=== PATIENT | female | born 1980 ===

== ENCOUNTER 2020-03-22 12:01 | Outpatient (REF) | payer OTHER, SELFPAY | END 2020-03-22 12:02 | disposition home or self-care (01) | LOC: HO.LAB 12:01 | PROVIDERS: Visit Provider Internal Medicine | DX: Z20.828 Contact with and (suspected) exposure to other viral communicable diseases (principal) | CPT/HCPCS: C9803; U0003 ==

== ENCOUNTER 2022-12-22 09:20 | Outpatient (AMB) | payer OTHER, SELFPAY ==
--- NOTE | 2022-12-22 09:22 | A.OFFVIS_ITS ---
Intake Vital Signs 12/22/22 09:29 Height 5 ft Weight 171 lb 4 oz BMI 33.4 BP 163/94 H Blood Pressure Location Lt brachial Position Sitting Pulse 78 Pulse Source Pulse Oximeter Pulse Oximetry (%) 98 Oxygen Delivery Method Room Air Intake Visit Reasons: Bilateral Foot Pain Allergies dulaglutide [From [employer]] Allergy (Unknown, Verified 12/22/22 09:26) Itching Latex Gloves Allergy (Unknown, Uncoded 12/22/22 09:26) Unknown HPI Bilateral Foot Pain HPI Details Patient is a pleasant 42 years old with history of uncontrolled diabetes, diabetic polyneuropathy, presents today for initial evaluation of bilateral foot pain. Denies any past or recent trauma, injury or falls. Reports most recent A1C was 9.4, managed with Metformin and Lantus Insulin 28 units daily at bedtime. She follows with [facility]. Patient reports severe neuropathy per EMG studies in 2021, these reports are not available today. Reports history of gestational DM at age 19, diagnosed with DM more than 20 years ago and has not controlled it for a long time per patient. The pain intensity rates at 8-10/10 in intensity. It interferes with her daily activities and functions, and sleeping as well. Pain is described as constant aching, spasming, stabbing, tingling, shooting, tiring, exhausting, shock-like, squeezing, nagging, sharp, numbness, burning, sensations in her lower extremities and feet which is most worst at night or walking during the day. Patient is interested in topical capsaicin application for bilateral foot pain as she has failed extensive conservative treatments through Podiatry and PT services as noted below. Patient reports mild axial low back pain without any radicular symptoms today. She reports neuropathy pain from knees down to her feet, left worse than right. Denies any fever, weakness, bladder or bowel inc ontinence or saddle anesthesia. Location Bilateral foot pain radiates to left knee, mid to low back pain Duration Chronic foot pain for >5 years, progressively worsening Characteristics of symptom or complaint Burning, aching, sharp, numbness, tingling, nagging, tiring, shooting Aggravating or associated factors Walking, sleeping Relieving factors Tried gabapentin, Feldene, now on pregabalin, topical compound creams Treatment Physical therapy at [facility], massage, customized orthopedic shoes, AFO splint [facility] Medical History (Updated 12/24/22 @ 21:53 by STEPHANIE Baker) Neuralgia and neuritis, unspecified Plantar fascial fibromatosis Hammer toe of left foot Hammer toe of right foot Carotid artery stenosis Numbness Vertigo Headache Migraine Diabetes Depression Back pain Anxiety Social History (Updated 12/22/22 @ 09:26 by Mary Blackman) Alcohol intake: former Patient Tobacco Use Status: Never used Tobacco Substance Use Type: Caffiene Substance Use Type Other:: 1-3 cups Substance Use Frequency: Daily Review of Systems Const All systems reviewed & are unremarkable except as noted in HPI and below Physical Exam Vital Signs: Last Vital Signs Pulse 78 12/22/22 09:29 BP 163/94 H 12/22/22 09:29 Pulse Ox 98 12/22/22 09:29 Oxygen Delivery Method Room Air 12/22/22 09:29 BMI result Body Mass Index 33.4 General: Appears afebrile. Alert and oriented. Mood and affect appropriate. Follows and participates in conversation appropriately. Respiratory effort is unlabored. No cough. Able to transition from sit to stand unassisted. Ambulates with bilaterally normal heel strike and toe off. Back/Spine/Pelvis Cervical Spine: cervical ROM normal, cervical muscular tenderness, No Cervical spine tenderness and No step off deformity Thoracic/Lumbar Spine: thoracic and lumbar spine normal to inspection, No Thoracic/lumbar spine scar(s), Lasegue's sign negative, straight leg raise negative bilaterally, pain with thoraco-lumbar ROM, thoracic spinal tenderness at T12 and lumbar spinal tenderness at L1 and at L5 Pelvis: no buttock tenderness Sacroiliac joints: bilaterally nontender Neuro Other: Bilateral feet: reduced light touch sensation, reduced sharp/dull discrimination consistent with stocking glove neuropathy. Patient reports burning, tingling, shooting and radiating pain to her knees, especially at evening and night, hyperesthesia bilaterally. General: moves all extremities, no focal motor deficits and decrease sensation to monofilament Gait exam (Neuro): Antalgic gait present and No Assistive device used Motor exam (neuro): 5/5 motor strength present throughout, no tremor noted and Motor abnormalities not present Extrem Other: There is a decreased sensation over the soles of the feet and toes. No breaks in the skin. No soft tissue swelling or warmth. +2 pedal pulses bilaterally. Normal skin color and texture. Good turgor and elasticity. General: Yes capillary refill normal, Yes no clubbing, cyanosis or edema and Yes no calf tenderness Results Reviewed Results Reviewed: No imaging results are available for review today. Assessment & Plan Assessment & Plan (1) Chronic painful diabetic neuropathy: Code(s): E11.40 - Type 2 diabetes mellitus with diabetic neuropathy, unspecified (2) Low back pain: Code(s): M54.50 - Low back pain, unspecified Plan Discussed risks and benefits of different treatment options including topical 8% capsaicin application and spinal cord stimulation. Medical release requests sent to [facility] for previous foot and back xrays, and EMG studies. Will try to arrange topical 8% capsaicin application for bilateral foot pain as the next step once we have confirmed availability. Informational booklet provided to patient. All questions and concerns have been answered and the patient agreed with the plan. Follow up as needed. Coding Level of Care Code New Pt Level 4 (75642) Diagnoses Chronic painful diabetic neuropathy E11.40 Low back pain M54.50
[2022-12-22 09:29] VITALS: BP 163/94; PULSE 78; O2SAT 98; BMI 33.4
== END 2022-12-22 09:56 | disposition home or self-care (01) ==
PROVIDERS: PCP Internal Medicine Geriatric Medicine; Visit Provider Nurse Practitioner Family
DX: E11.40 Type 2 diabetes mellitus with diabetic neuropathy, unspecified (principal); M54.50 Low back pain, unspecified
CPT/HCPCS: 99204

== ENCOUNTER → 2022-12-22 09:20 | Outpatient (BNVA) | payer OTHER, SELFPAY | PROVIDERS: PCP Internal Medicine Geriatric Medicine; Visit Provider Nurse Practitioner Family ==

== ENCOUNTER 2023-01-04 12:56 | Outpatient (AMB) | payer OTHER, SELFPAY ==
--- NOTE | 2023-01-04 13:00 | MHC.OFFVIS ---
Intake Vital Signs 01/04/23 13:05 01/04/23 13:32 01/04/23 14:11 Height 5 ft Weight 171 lb BMI 33.4 BP 130/84 120/73 118/71 Blood Pressure Location Rt brachial Lt brachial Lt brachial Position Sitting Sitting Sitting Pulse 103 H 100 101 H Pulse Source Pulse Oximeter Pulse Oximeter Pulse Oximeter Pulse Oximetry (%) 99 97 98 Oxygen Delivery Method Room Air Room Air Room Air Comment 15 mins after qutenza application 30 mins after qutenza application Intake Visit Reasons: Qutenza - DN/ LVM. Intake Note: Nicole comes i today for qutenza application to bilateral feet. Lot #[id number] Exp [facility] [id number] Pain today 09/09 Legal Executive Assistant Required: No Accompanied by: Self / Same As Patient Allergies dulaglutide [From [facility]] Allergy (Unknown, Verified 01/04/23 13:05) Itching Latex Gloves Allergy (Unknown, Uncoded 12/22/22 09:26) Unknown HPI HPI Comments History of Present Illness Details Patient presents for application of capsaicin 8% topical patch for diabetic neuropathy in bilateral feet. Denies any recent cough, cold, infection, fever or other significant changes in medical history since last office visit. PRIOR: Patient is a pleasant 42 years old with history of uncontrolled diabetes, diabetic polyneuropathy, presents today for initial evaluation of bilateral foot pain. Denies any past or recent trauma, injury or falls. Reports most recent A1C was 9.4, managed with Metformin and Lantus Insulin 28 units daily at bedtime. She follows with [facility]. Patient reports severe neuropathy per EMG studies in 2021, these reports are not available today. Reports history of gestational DM at age 19, diagnosed with DM more than 20 years ago and has not controlled it for a long time per patient. The pain intensity rates at 8-10/10 in intensity. It interferes with her daily activities and functions, and sleeping as well. Pain is described as constant aching, spasming, stabbing, tingling, shooting, tiring, exhausting, shock-like, squeezing, nagging, sharp, numbness, burning, sensations in her lower extremities and feet which is most worst at night or walking during the day. Patient is interested in topical capsaicin application for bilateral foot pain as she has failed extensive conservative treatments through Podiatry and PT services as noted below. Patient reports mild axial low back pain without any radicular symptoms today. She reports neuropathy pain from knees down to her feet, left worse than right. Denies any fever, weakness, bladder or bowel incontinence or saddle anesthesia. Location Bilateral foot pain radiates to left knee, mid to low back pain Duration Chronic foot pain for >5 years, progressively worsening Characteristics of symptom or complaint Burning, aching, sharp, numbness, tingling, nagging, tiring, shooting Aggravating or associated factors Walking, sleeping Relieving factors Tried gabapentin, Feldene, now on pregabalin, topical compound creams Treatment Physical therapy at [facility], massage, customized orthopedic shoes, AFO splint [facility] Medical History Neuralgia and neuritis, unspecified Plantar fascial fibromatosis Hammer toe of left foot Hammer toe of right foot Carotid artery stenosis Numbness Vertigo Headache Migraine Diabetes Depression Back pain Anxiety Social History Alcohol intake: former Patient Tobacco Use Status: Never used Tobacco Substance Use Type: Caffiene Review of Systems Const All systems reviewed & are unremarkable except as noted in HPI and below Physical Exam Vital Signs: Last Vital Signs Pulse 100 01/04/23 13:32 BP 120/73 01/04/23 13:32 Pulse Ox 97 01/04/23 13:32 Oxygen Delivery Method Room Air 01/04/23 13:32 BMI result Body Mass Index 33.4 General: Appears afebrile. Alert and oriented. Mood and affect appropriate. Follows and participates in conversation appropriately. Respiratory effort is unlabored. No cough. Able to transition from sit to stand unassisted. Ambulates with bilaterally normal heel strike and toe off. Neuro Other: Bilateral feet: reduced light touch sensation, reduced sharp/dull discrimination consistent with stocking glove neuropathy. Patient reports burning, tingling, shooting and radiating pain to her knees, especially at evening and night, hyperesthesia bilaterally. Extrem Other: There is a decreased sensation over the soles of the feet and toes. No breaks in the skin. No skin discoloration. Normal skin texture. No soft tissue swelling or warmth. +2 pedal pulses bilaterally. General: Yes capillary refill normal, Yes no clubbing, cyanosis or edema and Yes no calf tenderness Office Procedures Topical Capsaicin Date 1:: 01/04/23 Laterality: Bilateral Location of left foot pain: Plantar and Dorsal Location of right foot pain: Plantar and Dorsal Quality of pain: Aching, Stabbing, Burning, Numb-like, Tiring, Penetrating, Sharp and Unbearable (at times) Details:: Two patches, 560 cm2 were utilized per each foot. EMLA Cream (lidocaine 2.5% and prilocaine 2.5%) was applied by patient at home prior to arriving for application of the patch. The patient tolerated the procedure well. Her vitals signs remained stable throughout the procedure. Patient was able to complete the stipulated 30 minutes of the therapeutic application without any discomfort. Office Meds capsaicin-skin cleanser 8 % topical kit Performing Provider: STEPHANIE Baker Performing Location: [facility] Administered by: STEPHANIE Baker on 01/04/23 13:15 Dose Route Admin Location Dispensed Lot Number Expiration Date [facility] Customer Sales Representative 4 ea topical [facility] 4 ea [id number] 04/02/25 [id number] [employer] Assessment & Plan Assessment & Plan (1) Chronic painful diabetic neuropathy: Code(s): E11.40 - Type 2 diabetes mellitus with diabetic neuropathy, unspecified Plan Patient is status post 1st round of application of topical capsaicin 8% for diabetic neuropathy in bilateral feet. Patient tolerated the procedure without significant discomfort with application of EMLA cream prior to the procedure. She was discharged home in stable condition with discharge instructions. All questions and concerns were answered and the patient agreed with the plan. Next Qutenza scheduled in 3 months. Follow up as needed. Greater than 45 minutes were spent in therapeutic application and in coordination of the care. Orders: Orders AMB Capsaicin Patch - Practice Supplied Today E11.40 - Type 2 diabetes mellitus with diabetic neuropathy, unspecified Coding Level of Care Code Est Pt Level 5 (82631) Diagnoses Chronic painful diabetic neuropathy E11.40
[2023-01-04 13:05] VITALS: BP 130/84; PULSE 103; O2SAT 99; BMI 33.4
[2023-01-04 13:32] VITALS: BP 120/73; PULSE 100; O2SAT 97
[2023-01-04 14:11] VITALS: BP 118/71; PULSE 101; O2SAT 98
== END 2023-01-04 13:53 | disposition home or self-care (01) ==
PROVIDERS: PCP Internal Medicine Geriatric Medicine; Visit Provider Nurse Practitioner Family
DX: E11.40 Type 2 diabetes mellitus with diabetic neuropathy, unspecified (principal)
CPT/HCPCS: 17999; 99215

== ENCOUNTER → 2023-01-04 12:56 | Outpatient (BNVA) | payer OTHER, SELFPAY | PROVIDERS: PCP Internal Medicine Geriatric Medicine; Visit Provider Nurse Practitioner Family | DX: E11.40 Type 2 diabetes mellitus with diabetic neuropathy, unspecified (principal) | CPT/HCPCS: 17999; J7336 ==

== ENCOUNTER 2023-01-29 13:59 | Outpatient (REF) | payer OTHER, SELFPAY | END 2023-01-29 14:00 | disposition home or self-care (01) | LOC: HO.SH 13:59 | PROVIDERS: Visit Provider Internal Medicine | DX: Z01.118 Encounter for examination of ears and hearing with other abnormal findings (principal); H90.6 Mixed conductive and sensorineural hearing loss, bilateral; H69.93 Unspecified Eustachian tube disorder, bilateral | CPT/HCPCS: 92557; 92567 ==

== ENCOUNTER 2023-04-06 12:51 | Outpatient (AMB) | payer OTHER, SELFPAY ==
--- NOTE | 2023-04-06 12:54 | MHC.OFFVIS ---
Intake Vital Signs 04/06/23 12:57 04/06/23 13:30 04/06/23 13:44 Height 5 ft Weight 170 lb BMI 33.2 BP 109/75 120/73 114/71 Blood Pressure Location Rt brachial Rt brachial Rt brachial Position Sitting Sitting Sitting Pulse 119 H 112 H 114 H Pulse Source Pulse Oximeter Pulse Oximeter Pulse Oximeter Pulse Oximetry (%) 100 99 98 Oxygen Delivery Method Room Air Room Air Room Air Comment 15 mins after qutenza application 30 mins after qutenza application Intake Visit Reasons: QUTENZA/DN Intake Note: Pain today 10/09 Television Analyzer Required: No Accompanied by: Self / Same As Patient Allergies [facility]ul[facility]ide [[facility]] Allergy (Unknown, Verified 04/06/23 12:58) Itching Latex Gloves Allergy (Unknown, Uncoded 12/22/22 09:26) Unknown HPI HPI Comments History of Present Illness Details Patient presents for 2nd application of capsaicin 8% topical patch for diabetic neuropathy in bilateral feet. Patient continues to endorse bilateral foot numbness, burning, sharp, and nagging sensantions worse at night and walking. She noted no significant symptoms improvement after first application on 01/04/23. Pain interferes with her mobility, daily functioning and sleep. Denies any recent cough, cold, infection, fever or other significant changes in medical history since last office visit. PRIOR: Patient is a pleasant 42 years old with history of uncontrolled diabetes, diabetic polyneuropathy, presents today for initial evaluation of bilateral foot pain. Denies any past or recent trauma, injury or falls. Reports most recent A1C was 9.4, managed with Metformin and Lantus Insulin 28 units daily at bedtime. She follows with [facility]. Patient reports severe neuropathy per EMG studies in 2021, these reports are not available today. Reports history of gestational DM at age 19, diagnosed with DM more than 20 years ago and has not controlled it for a long time per patient. The pain intensity rates at 8-10/10 in intensity. It interferes with her daily activities and functions, and sleeping as well. Pain is described as constant aching, spasming, stabbing, tingling, shooting, tiring, exhausting, shock-like, squeezing, nagging, sharp, numbness, burning, sensations in her lower extremities and feet which is most worst at night or walking during the day. Patient is interested in topical capsaicin application for bilateral foot pain as she has failed extensive conservative treatments through Podiatry and PT services as noted below. Patient reports mild axial low back pain without any radicular symptoms today. She reports neuropathy pain from knees down to her feet, left worse than right. Denies any fever, weakness, bladder or bowel incontinence or saddle anesthesia. Location Bilateral foot pain radiates to left knee, mid to low back pain Duration Chronic foot pain for >5 years, progressively worsening Characteristics of symptom or complaint Burning, aching, sharp, numbness, tingling, nagging, tiring, shooting Aggravating or associated factors Walking, sleeping Relieving factors Tried gabapentin, Feldene, now on pregabalin, topical compound creams Treatment Physical therapy at [facility], massage, customized orthopedic shoes, AFO splint PENDING SALE TO [facility] Medical History Neuralgia and neuritis, unspecified Plantar fascial fibromatosis Hammer toe of left foot Hammer toe of right foot Carotid artery stenosis Numbness Vertigo Headache Migraine Diabetes Depression Back pain Anxiety Social History Alcohol intake: former Patient Tobacco Use Status: Never used Tobacco Substance Use Type: Caffiene Review of Systems Const All systems reviewed & are unremarkable except as noted in HPI and below Physical Exam Vital Signs: Last Vital Signs Pulse 112 H 04/06/23 13:30 BP 120/73 04/06/23 13:30 Pulse Ox 99 04/06/23 13:30 Oxygen Delivery Method Room Air 04/06/23 13:30 BMI result Body Mass Index 33.2 General: Appears afebrile. Alert and oriented. Mood and affect appropriate. Follows and participates in conversation appropriately. Respiratory effort is unlabored. No cough. Able to transition from sit to stand unassisted. Ambulates with bilaterally normal heel strike and toe off. Back/Spine/Pelvis Cervical Spine: cervical ROM normal and No Cervical spine tenderness Thoracic/Lumbar Spine: thoracic and lumbar spine normal to inspection, No Thoracic/lumbar spine scar(s), Lasegue's sign negative, straight leg raise negative bilaterally, pain with thoraco-lumbar ROM, No thoracic spinal tenderness and lumbar spinal tenderness at L4 and at L5 Pelvis: no buttock tenderness Skin General skin exam: no rashes or lesions noted Nails: yellow and thickened (toenails) Neuro Other: Bilateral feet: reduced light touch sensation, reduced sharp/dull discrimination consistent with stocking glove neuropathy. Patient reports burning, tingling, shooting and radiating pain to her knees, especially at evening and night, hyperesthesia bilaterally. Extrem Other: There is a decreased sensation over the soles of the feet and toes. No breaks in the skin. No skin discoloration. Normal skin texture. No soft tissue swelling or warmth. +2 pedal pulses bilaterally. Normal capillary refill. No clubbing, cyanosis or edema. No calf tenderness. Office Procedures Topical Capsaicin Date 1:: 01/04/23 Date 2:: 04/06/23 Main area of pain on the body: Bilateral feet and toes Laterality: Bilateral Location of left foot pain: Anterior, Posterior, Plantar and Dorsal Location of right foot pain: Anterior, Posterior, Plantar and Dorsal Quality of pain: Aching, Stabbing, Nagging, Burning, Gnawing and Numb-like Details:: Two patches, 560 cm2 were utilized per each foot. EMLA Cream (lidocaine 2.5% and prilocaine 2.5%) was applied at home by patient prior to application of the patches. The patient tolerated the procedure well. Patient?s vitals signs remained stable throughout the procedure. Patient was able to complete the stipulated 30 minutes of the therapeutic application without any discomfort. Office Meds capsaicin-skin cleanser 8 % topical kit Performing Provider: STEPHANIE Baker Performing Location: [facility] Administered by: STEPHANIE Baker on 04/06/23 13:10 Dose Route Admin Location Dispensed Lot Number Expiration Date [facility] Sprinkler Driver [address] [facility] 4 ea [id number] 08/31/25 [id number] [employer] Assessment & Plan Assessment & Plan (1) Chronic painful diabetic neuropathy: Code(s): E11.40 - Type 2 diabetes mellitus with diabetic neuropathy, unspecified (2) Low back pain: Code(s): M54.50 - Low back pain, unspecified Plan Patient is status post 2nd round of application of topical capsaicin 8% for diabetic neuropathy in bilateral feet. Patient tolerated the procedure without significant discomfort with application of EMLA cream prior to the procedure. She was discharged home in stable condition with discharge instructions. Script sent for amitriptyline at bedtime, side effects and precautions were reviewed with patient. Continue pregabalin. All questions and concerns were answered and the patient agreed with the plan. Next Qutenza scheduled in 3 months. Follow up for medication review and sooner as needed. Greater than 40 minutes were spent in therapeutic application and in coordination of the care. Orders: Orders AMB Capsaicin Patch - Practice Supplied Today E11.40 - Type 2 diabetes mellitus with diabetic neuropathy, unspecified Medications: New amitriptyline 10 mg PO BEDTIME 30 days 30 tabs 0RF pain E11.40 - Type 2 diabetes mellitus with diabetic neuropathy, unspecified Coding Level of Care Code Est Pt Level 4 (64407) Diagnoses Chronic painful diabetic neuropathy E11.40 Low back pain M54.50
[2023-04-06 12:57] VITALS: BP 109/75; PULSE 119; O2SAT 100; BMI 33.2
[2023-04-06 13:30] VITALS: BP 120/73; PULSE 112; O2SAT 99
[2023-04-06 13:44] VITALS: BP 114/71; PULSE 114; O2SAT 98
== END 2023-04-06 13:47 | disposition home or self-care (01) ==
PROVIDERS: PCP Internal Medicine Geriatric Medicine; Visit Provider Nurse Practitioner Family
DX: E11.40 Type 2 diabetes mellitus with diabetic neuropathy, unspecified (principal); M54.50 Low back pain, unspecified
CPT/HCPCS: 17999; 99214

== ENCOUNTER → 2023-04-06 12:51 | Outpatient (BNVA) | payer OTHER, SELFPAY | PROVIDERS: PCP Internal Medicine Geriatric Medicine; Visit Provider Nurse Practitioner Family | DX: E11.40 Type 2 diabetes mellitus with diabetic neuropathy, unspecified (principal); M79.671 Pain in right foot; M79.672 Pain in left foot; M54.50 Low back pain, unspecified | CPT/HCPCS: 17999; J7336 ==

== ENCOUNTER 2023-07-06 12:56 | Outpatient (AMB) | payer OTHER, SELFPAY ==
--- NOTE | 2023-07-06 12:58 | A.OFFVIS_ITS ---
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 Continues to report burning pain in both feet with increased numbness and tingling sensations extending to her lateral and medial foot and toes. She reports A1C remain elevated >10 and recently started on third DM medication, in addition to Lantus insulin and metformin. Patient reports she follows with Endocrinology regularly. Pregabalin and amitriptyline have been partially effective. She reports adherence to ADA diet. Denies any recent cough, cold, infection, fever or other significant changes in medical history since last office visit. PRIOR: Patient is a pleasant 42 years old with history of uncontrolled diabetes, diabetic polyneuropathy, presents today for initial evaluation of bilateral foot pain. Denies any past or recent trauma, injury or falls. Reports most recent A1C was 9.4, managed with Metformin and Lantus Insulin 28 units daily at bedtime. She follows with [facility]. Patient reports severe neuropathy per EMG studies in 2021, these reports are not available today. Reports history of gestational DM at age 19, diagnosed with DM more than 20 years ago and has not controlled it for a long time per patient. The pain intensity rates at 8-10/10 in intensity. It interferes with her daily activities and functions, and sleeping as well. Pain is described as constant aching, spasming, stabbing, tingling, shooting, tiring, exhausting, shock-like, squeezing, nagging, sharp, numbness, burning, sensations in her lower extremities and feet which is most worst at night or walking during the day. Patient is interested in topical capsaicin application for bilateral foot pain as she has failed extensive conservative treatments through Podiatry and PT services as noted below. Patient reports mild axial low back pain without any radicular symptoms today. She reports neuropathy pain from knees down to her feet, left worse than right. Denies any fever, weakness, bladder or bowel incontinence or saddle anesthesia. Location Bilateral foot pain radiates to left knee, mid to low back pain Duration Chronic foot pain for >5 years, progressively worsening Characteristics of symptom or complaint Burning, aching, sharp, numbness, tingling, nagging, tiring, shooting Aggravating or associated factors Walking, sleeping Relieving factors Tried gabapentin, Feldene, now on pregabalin, topical compound creams Treatment Physical therapy at [facility], massage, customized orthopedic shoes, AFO splint [facility] Medical History Neuralgia and neuritis, unspecified Plantar fascial fibromatosis Hammer toe of left foot Hammer toe of right foot Carotid artery stenosis Numbness Vertigo Headache Migraine Diabetes Depression Back pain Anxiety Social History Alcohol intake: former Patient Tobacco Use Status: Never used Tobacco Substance Use Type: Caffiene Review of Systems Const All systems reviewed & are unremarkable except as noted in HPI and below Physical Exam Vital Signs: Last Vital Signs Pulse 110 H 07/06/23 13:57 BP 129/67 07/06/23 13:57 Pulse Ox 99 07/06/23 13:57 Oxygen Delivery Method Room Air 07/06/23 13:57 BMI result Body Mass Index 33.8 General: Appears afebrile. Alert and oriented. Mood and affect appropriate. Follows and participates in conversation appropriately. Respiratory effort is unlabored. No cough. Able to transition from sit to stand unassisted. Ambulates with bilaterally normal heel strike and toe off. 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 Patient reports burning, tingling, shooting and radiating pain to her knees, especially at evening and night, hyperesthesia bilaterally. Extrem Other: There is a decreased sensation over the soles of the feet and toes. No breaks in the skin. No skin discoloration. Normal skin texture. No soft tissue swelling or warmth. +2 pedal pulses bilaterally. Normal capillary refill. No clubbing, cyanosis or edema. No calf tenderness. Office Procedures Topical Capsaicin Date 1:: 01/04/23 Date 2:: 04/06/23 Date 3:: 07/06/23 Main area of pain on the body: Bilateral feet and toes Laterality: Bilateral Location of left foot pain: Plantar, Dorsal, Medial, Lateral and Distal Location of right foot pain: Plantar, Dorsal, Medial, Lateral and Distal Quality of pain: Aching, Nagging, Burning, Gnawing, Numb-like and Tiring Details:: Two patches, 560 cm2 were utilized per each foot. EMLA Cream (lidocaine 2.5% and prilocaine 2.5%) was applied at home by patient prior to application of the patches. The patient tolerated the procedure well. Patient?s vitals signs remained stable throughout the procedure. Patient was able to complete the stipulated 30 minutes of the therapeutic application without any discomfort. 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 Patient tolerated the procedure without significant discomfort with application of EMLA cream prior to the procedure. She was discharged home in stable condition with discharge instructions. Continue amitriptyline at bedtime, and pregabalin with increased dose at 200 mg BID. Side effects and precautions were reviewed with patient. All questions and concerns were answered and the patient agreed with the plan. Next Qutenza scheduled in 3 months. Follow up for medication review and sooner as needed. Greater than 35 minutes were spent in therapeutic application and in coordination of the care. Orders: Orders AMB Capsaicin Patch - Practice Supplied Today E11.40 - Type 2 diabetes mellitus with diabetic neuropathy, unspecified Medications: Changed From pregabalin 150 mg PO DAILY E11.40 - Type 2 diabetes mellitus with diabetic neuropathy, unspecified To pregabalin 200 mg PO BID 60 caps 0RF pain 30 days E11.40 - Type 2 diabetes mellitus with diabetic neuropathy, unspecified Coding Level of Care Code Est Pt Level 4 (55586) Diagnoses Chronic painful diabetic neuropathy E11.40 Diabetes mellitus, with long-term current use of insulin E11.9; Z79.4
[2023-07-06 13:07] VITALS: BP 118/74; PULSE 117; O2SAT 98; BMI 33.8
[2023-07-06 13:36] VITALS: BP 131/68; PULSE 113; O2SAT 98
[2023-07-06 13:57] VITALS: BP 129/67; PULSE 110; O2SAT 99
== END 2023-07-06 13:44 | disposition home or self-care (01) ==
PROVIDERS: PCP Internal Medicine Geriatric Medicine; Visit Provider Nurse Practitioner Family
DX: E11.40 Type 2 diabetes mellitus with diabetic neuropathy, unspecified (principal); Z79.4 Long term (current) use of insulin
CPT/HCPCS: 17999; 99214

== ENCOUNTER → 2023-07-06 12:56 | Outpatient (BNVA) | payer OTHER, SELFPAY | PROVIDERS: PCP Internal Medicine Geriatric Medicine; Visit Provider Nurse Practitioner Family | DX: E11.42 Type 2 diabetes mellitus with diabetic polyneuropathy (principal); Z51.81 Encounter for therapeutic drug level monitoring; Z79.4 Long term (current) use of insulin | CPT/HCPCS: 17999; J7336 ==

== ENCOUNTER 2023-10-08 12:52 | Outpatient (AMB) | payer OTHER, SELFPAY ==
--- NOTE | 2023-10-08 12:55 | MHC.OFFVIS ---
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 Accompanied by: Self / Same As Patient Allergies dulaglutide [From [facility]] Allergy (Unknown, Verified 10/08/23 12:59) Itching latex Allergy (Unknown, Verified 10/08/23 12:59) Unknown Medication List - Last Reconciled 10/08/23 by STEPHANIE Baker amitriptyline 25 mg PO BEDTIME 30 days aspirin (Janet Chewable Low Dose Aspirin) 81 mg PO DAILY atorvastatin 40 mg PO DAILY cholecalciferol (vitamin D3) 10 mcg PO DAILY empagliflozin (Jardiance) 25 mg PO QAM famotidine 20 mg PO BID ferrous fumarate 325 mg PO DAILY ferrous sulfate (FeroSul) 325 mg PO DAILY glimepiride 4 mg PO DAILY insulin glargine (Lantus Solostar U-100 Insulin) units subcut lidocaine-prilocaine 2.5-2.5 % 1 appl topical ONCE metformin ER 1,000 mg PO BID omeprazole 20 mg PO DAILY pregabalin 200 mg PO BID 30 days venlafaxine ER 150 mg PO DAILY HPI Comments Details: Patient presents for 4th application of capsaicin 8% topical patch for diabetic neuropathy in bilateral feet. Continues to report burning pain in both feet with increased numbness and tingling sensations extending to her lateral and medial foot and toes. She reports A1C has improved to 8.4 down from 10. She is taking Jardiance, Lantus insulin and metformin. Patient reports she follows with Endocrinology regularly. Pregabalin and amitriptyline have been partially effective. She reports adherence to ADA diet. Denies any recent cough, cold, infection, fever or other significant changes in medical history since last office visit. PRIOR: Patient is a pleasant 42 years old with history of uncontrolled diabetes, diabetic polyneuropathy, presents today for initial evaluation of bilateral foot pain. Denies any past or recent trauma, injury or falls. Reports most recent A1C was 9.4, managed with Metformin and Lantus Insulin 28 units daily at bedtime. She follows with [facility]. Patient reports severe neuropathy per EMG studies in 2021, these reports are not available today. Reports history of gestational DM at age 19, diagnosed with DM more than 20 years ago and has not controlled it for a long time per patient. The pain intensity rates at 8-10/10 in intensity. It interferes with her daily activities and functions, and sleeping as well. Pain is described as constant aching, spasming, stabbing, tingling, shooting, tiring, exhausting, shock-like, squeezing, nagging, sharp, numbness, burning, sensations in her lower extremities and feet which is most worst at night or walking during the day. Patient is interested in topical capsaicin application for bilateral foot pain as she has failed extensive conservative treatments through Podiatry and PT services as noted below. Patient reports mild axial low back pain without any radicular symptoms today. She reports neuropathy pain from knees down to her feet, left worse than right. Denies any fever, weakness, bladder or bowel incontinence or saddle anesthesia. Location Bilateral foot pain radiates to left knee, mid to low back pain Duration Chronic foot pain for >5 years, progressively worsening Characteristics of symptom or complaint Burning, aching, sharp, numbness, tingling, nagging, tiring, shooting Aggravating or associated factors Walking, sleeping Relieving factors Tried gabapentin, Feldene, now on pregabalin, topical compound creams Treatment Physical therapy at [facility], massage, customized orthopedic shoes, AFO splint [facility] Medical History Neuralgia and neuritis, unspecified Plantar fascial fibromatosis Hammer toe of left foot Hammer toe of right foot Carotid artery stenosis Numbness Vertigo Headache Migraine Diabetes Depression Back pain Anxiety Social History Alcohol intake: former Patient Tobacco Use Status: Never used Tobacco Substance Use Type: Caffiene Review of Systems Const All systems reviewed & are unremarkable except as noted in HPI and below Physical Exam Vital Signs: Last Vital Signs Pulse 106 H 10/08/23 12:58 BP 122/85 10/08/23 12:58 Pulse Ox 99 10/08/23 12:58 Oxygen Delivery Method Room Air 10/08/23 12:58 BMI result Body Mass Index 32.6 General: Appears afebrile. No acute distress. Alert and oriented. Mood and affect appropriate. Follows and participates in conversation appropriately. Respiratory effort is unlabored. No cough. Able to transition from sit to stand unassisted. Ambulates with bilaterally normal heel strike and toe off. Painful facet loading bilaterally. SLR is negative bilaterally. Skin General skin exam: no rashes or lesions noted Nails: yellow and thickened (toenails) Extrem Other: There is a decreased sensation over the soles of the feet and toes. No breaks in the skin. No skin discoloration. Normal skin texture. No soft tissue swelling or warmth. +2 pedal pulses bilaterally. Normal capillary refill. No clubbing, cyanosis or edema. No calf tenderness. Office Procedures Topical Capsaicin Date 1:: 01/04/23 Date 2:: 04/06/23 Date 3:: 07/06/23 Date 4:: 10/08/23 Main area of pain on the body: Bilateral feet and toes Laterality: Bilateral Location of left foot pain: Plantar, Dorsal, Medial, Lateral and Distal Location of right foot pain: Plantar, Dorsal, Medial, Lateral and Distal Quality of pain: Aching, Nagging, Burning, Gnawing, Numb-like and Tiring Details:: Two patches, 560 cm2 were utilized per each foot. EMLA Cream (lidocaine 2.5% and prilocaine 2.5%) was applied at home by patient prior to application of the patches. The patient tolerated the procedure well. Patient?s vitals signs remained stable throughout the procedure. Patient was able to complete the stipulated 30 minutes of the therapeutic application without any discomfort. 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 [facility] 4 ea [id number] 09/30/25 23285-816-21 [place] [place] Assessment & Plan Assessment & Plan (1) Chronic painful diabetic neuropathy: Code(s): E11.40 - Type 2 diabetes mellitus with diabetic neuropathy, unspecified Category: Medical (2) Diabetes mellitus, with long-term current use of insulin: Code(s): E11.9 - Type 2 diabetes mellitus without complications; Z79.4 - [facility] (current) use of insulin Category: Medical (3) Low back pain: Code(s): M54.50 - Low back pain, unspecified Category: Medical Plan Patient is status post 4th round of application of topical capsaicin 8% for diabetic neuropathy in bilateral feet. Patient tolerated the procedure without significant discomfort with application of EMLA cream prior to the procedure. She was discharged home in stable condition with discharge instructions. Will increase amitriptyline to 25 mg at bedtime, and continue pregabalin at 200 mg BID. Side effects and precautions were reviewed with patient. We also discussed neuromodulation with SCS trial and implant, including risks and benefits of SCS trial and implant procedures and all questions were answered to patient satisfaction. Patient will continue to work towards A1C goal<7.0 and notify our office if she is interested in SCS trial. She would like to hold off on Qutenza applications at this time and monitor her symptoms. All questions and concerns were answered and the patient agreed with the plan. Follow up for medication review and sooner as needed. Greater than 40 minutes were spent in therapeutic application and in coordination of the care. 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
[2023-10-08 12:58] VITALS: BP 122/85; PULSE 106; O2SAT 99; BMI 32.6
[2023-10-08 13:55] VITALS: BP 117/67; PULSE 67; O2SAT 98
[2023-10-08 14:04] VITALS: BP 113/68; PULSE 91; O2SAT 99
== END 2023-10-08 14:05 | disposition home or self-care (01) ==
PROVIDERS: PCP Internal Medicine Geriatric Medicine; Visit Provider Nurse Practitioner Family
DX: E11.40 Type 2 diabetes mellitus with diabetic neuropathy, unspecified (principal); Z79.4 Long term (current) use of insulin; M54.50 Low back pain, unspecified
CPT/HCPCS: 17999; 99214

== ENCOUNTER → 2023-10-08 12:52 | Outpatient (BNVA) | payer OTHER, SELFPAY | PROVIDERS: PCP Internal Medicine Geriatric Medicine; Visit Provider Nurse Practitioner Family | DX: E11.40 Type 2 diabetes mellitus with diabetic neuropathy, unspecified (principal); M54.50 Low back pain, unspecified; Z79.4 Long term (current) use of insulin | CPT/HCPCS: 17999; J7336 ==

== ENCOUNTER 2025-02-09 14:37 | Outpatient (AMB) | payer OTHER, SELFPAY ==
--- NOTE | 2025-02-09 14:40 | MHC.OFFVIS ---
Vital Signs 02/09/25 14:56 Height 5 ft Weight 168 lb 2 oz BMI 32.8 BP 136/67 Blood Pressure Location Lt brachial Position Sitting Pulse 107 H Pulse Source Pulse Oximeter Pulse Oximetry (%) 100 Oxygen Delivery Method Room Air Intake Visit Reasons: MEDICATION FOLLOW UP Air Value Tester Required: No Accompanied by: Self / Same As Patient Allergies dulaglutide (From [facility]) Allergy (Unknown, Verified 02/09/25 14:57) Itching latex Allergy (Unknown, Verified 02/09/25 14:57) Unknown HPI Comments Details: The patient is a 45-year-old female presenting with a follow-up for diabetic neuropathy management and medication refill. The patient has been experiencing diabetic neuropathy in both feet, which has been managed with pregabalin. Previously, gabapentin was tried but not effective. The patient reports no side effects from pregabalin, although she wishes for a more effective treatment. She has been advised to avoid alcohol as it exacerbates her symptoms, and she has noticed improvement since reducing alcohol intake. Her hemoglobin A1c has improved significantly from above 9% last year to 6.9%, indicating better glycemic control. The patient initially had an A1c of 13%, showing substantial progress over time. - Pain is located in both feet due to diabetic neuropathy. - Pain recurs between 11 and 12 hours after medication, indicating the need for regular dosing. - Alcohol exacerbates the pain, leading to the patient's decision to reduce alcohol consumption. - Affect: The patient reports needing medication to feel better. - Analgesia: Currently using pregabalin, with a planned increase from 200 mg to 225 mg twice daily. - Adverse Effects: No reported side effects from pregabalin. - Activities of Daily Living: Pain affects mobility, requiring medication adherence. - Aberrant Drug Related Behaviors: No evidence of misuse; patient adheres to prescribed regimen. PRIOR: Patient presents for 4th application of capsaicin 8% topical patch for diabetic neuropathy in bilateral feet. Continues to report burning pain in both feet with increased numbness and tingling sensations extending to her lateral and medial foot and toes. She reports A1C has improved to 8.4 down from 10. She is taking Jardiance, Lantus insulin and metformin. Patient reports she follows with Endocrinology regularly. Pregabalin and amitriptyline have been partially effective. She reports adherence to ADA diet. Denies any recent cough, cold, infection, fever or other significant changes in medical history since last office visit. PRIOR: Patient is a pleasant 42 years old with history of uncontrolled diabetes, diabetic polyneuropathy, presents today for initial evaluation of bilateral foot pain. Denies any past or recent trauma, injury or falls. Reports most recent A1C was 9.4, managed with Metformin and Lantus Insulin 28 units daily at bedtime. She follows with [facility]. Patient reports severe neuropathy per EMG studies in 2021, these reports are not available today. Reports history of gestational DM at age 19, diagnosed with DM more than 20 years ago and has not controlled it for a long time per patient. The pain intensity rates at 8-10/10 in intensity. It interferes with her daily activities and functions, and sleeping as well. Pain is described as constant aching, spasming, stabbing, tingling, shooting, tiring, exhausting, shock-like, squeezing, nagging, sharp, numbness, burning, sensations in her lower extremities and feet which is most worst at night or walking during the day. Patient is interested in topical capsaicin application for bilateral foot pain as she has failed extensive conservative treatments through Podiatry and PT services as noted below. Patient reports mild axial low back pain without any radicular symptoms today. She reports neuropathy pain from knees down to her feet, left worse than right. Denies any fever, weakness, bladder or bowel incontinence or saddle anesthesia. Location Bilateral foot pain radiates to left knee, mid to low back pain Duration Chronic foot pain for >5 years, progressively worsening Characteristics of symptom or complaint Burning, aching, sharp, numbness, tingling, nagging, tiring, shooting Aggravating or associated factors Walking, sleeping Relieving factors Tried gabapentin, Feldene, now on pregabalin, topical compound creams Treatment Physical therapy at [facility], massage, customized orthopedic shoes, AFO splint REPLACED BY [facility] Medical History Neuralgia and neuritis, unspecified Plantar fascial fibromatosis Hammer toe of left foot Hammer toe of right foot Carotid artery stenosis Numbness Vertigo Headache Migraine Diabetes Depression Back pain Anxiety Social History Alcohol intake: former Patient Tobacco Use Status: Never used Tobacco Substance Use Type: Caffiene Review of Systems Const Details: - Neurological: Reports pain in both feet due to diabetic neuropathy. Denies dizziness or any side effects at current medication dose. All systems reviewed & are unremarkable except as noted in HPI and below Physical Exam Vital Signs: Last Vital Signs Pulse 107 H 02/09/25 14:56 BP 136/67 02/09/25 14:56 Pulse Ox 100 02/09/25 14:56 Oxygen Delivery Method Room Air 02/09/25 14:56 BMI result Body Mass Index 32.8 General: Appears afebrile. No acute distress. Alert and oriented. Mood and affect appropriate. Follows and participates in conversation appropriately. Respiratory effort is unlabored. No cough. Able to transition from sit to stand unassisted. Ambulates with bilaterally normal heel strike and toe off. Painful facet loading bilaterally. SLR is negative bilaterally. Extrem General: Yes capillary refill normal, Yes no clubbing, cyanosis or edema and Yes no calf tenderness Psych Appearance: grossly normal and well kempt Mental Status: mental status grossly normal Speech and movement: Normal speech and movement present and Clear speech present Affect: normal affect Attitude: cooperative Thought process: Normal thought process present Thought content: Normal thought content present, suicidality (none), no hallucinations and No Depressive thoughts present Insight: Good insight present (Psych) Judgement: Good judgement present (Psych) Results Reviewed Results Reviewed: No imaging results are available for review today. Assessment & Plan Assessment & Plan (1) Chronic painful diabetic neuropathy: Code(s): E11.40 - Type 2 diabetes mellitus with diabetic neuropathy, unspecified Category: Medical (2) Low back pain: Code(s): M54.50 - Low back pain, unspecified Category: Medical (3) Chronic pain syndrome: Code(s): G89.4 - Chronic pain syndrome Category: Medical Plan The plan includes a small increase in pregabalin dosage from 200 mg to 225 mg twice daily to better manage the patient's diabetic neuropathy. The patient is advised to continue avoiding alcohol as it worsens her symptoms and should not be taken while taking pregabalin. Patient also tried Qutenza applications for a year with mild improvement in her neuropathy symptoms. All questions and concerns have been answered and patient agreed with the treatment plan. Follow up for medication review and sooner as needed. Patient was informed and verbally consented to the use of an ambient scribe for clinic note documentation during this visit. Medications: Changed From pregabalin 200 mg PO BID 30 days 60 caps 2RF pain E11.40 - Type 2 diabetes mellitus with diabetic neuropathy, unspecified, M54.50 - Low back pain, unspecified To pregabalin 225 mg PO BID 60 caps 1RF pain 30 days E11.40 - Type 2 diabetes mellitus with diabetic neuropathy, unspecified, M54.50 - Low back pain, unspecified Coding Level of Care Code Est Pt Level 4 (88488) Complex EM visit Add On G2211 Diagnoses Chronic painful diabetic neuropathy E11.40 Low back pain M54.50 Chronic pain syndrome G89.4
[2025-02-09 14:56] VITALS: BP 136/67; PULSE 107; O2SAT 100; BMI 32.8
--- OUTSIDE RECORDS SUMMARY | 2025-02-09 16:56 | XMS_ITS | Continuity of Care Document ---
Author Organization [place] - [facility], [facility] Address [address] [place] [address] Care Team Providers Care Certified Physician Assistant Name Role Phone DL TRIPLETT Primary Care Provider [phone] Assessment Encounter Date Assessment Date Assessment LastModified by Organization Details LastModified Time 01/08/2025 01/08/2025 Right external auditory canal continues to show a stable, dry medial canal stenosis with obliteration of the tympanic membrane. Left tympanic membrane shows some anterior canal blunting and some tympanosclerosis . Audiometric testing shows mixed hearing loss significantly affecting the right ear greater than left. In light of her prior history of hypertrophic scarring and inflammation in the conjunction with the current exam I would not recommend surgical intervention for either ear. In light of the medial canal stenosis and maximal conductive hearing loss in the right ear, I do not think the ear would tolerate conventional amplification. She would be a great candidate to proceed with the Osia bone-conduction implant that we discussed in the past. Patient met with Sneha in audiology today and proceeded with bone-conduction demo. Patient found that she got excellent results from the demonstration device and expressed her desire to proceed with implantation on the right. Risks and benefits of Osia implantation discussed with patient, including but not limited to cosmetic deformity, bleeding, loss of hair, numbness of ear and scalp, wound infection, skin necrosis, Implant failure with or without the need for replacement, CSF leak, meningitis, and intracranial injury. Appropriate expectations reviewed. Patient voiced understanding and wishes to proceed with surgery. I have provided patient with the contact information for my medical surgical tech. We will begin the scheduling process and see the patient back at the time of surgery. Patient will not require medical clearance from their primary care provider preoperatively. [email or web address] Not available 01/08/2025 08:38:56 Plan of Treatment Reminders Order Date Submit Date Provider Last Modified By Organization Details Last Modified Time Details Appointments SURGERY 90 2024 01:30P M JUAN VEGAS MD Not available Not available Not available Post Op 2024 02:15P M RUT CARROLL Not available Not available Not available Post Op 2025 01:40P M JUAN VEGAS MD Not available Not available Not available Lab None recorded. Referral None recorded. Procedures None recorded. Surgeries implantat ion of electroma gnetic bone conductio n hearing device in temporal bone (SURG) 2024 025 [email or web address] Not available 01/19/2025 10:14:09 Imaging None recorded. Medication Orders None recorded. Patient TargetsNo targets recorded. Patient InstructionsNo instructions recorded. Reason for Referral None Reported. Results Created Date Observation Date Name Description Value Unit Range Abnormal Flag Note LastModifiedBy Organization Detail LastModifiedTime 01/09/20 25 audio gram No observ ation record ed. BARCODE Not Available 2024 10:20:58 Result Notes None recorded. 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 31366537045 84072 Active 2021 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 infection ; Note: Date Diagnosed : 05/17/2021 9:25 AM (H61.321) JUAN VEGAS MD [address] [place] [address], [facility] [place], [address] , [facility] - [facility] 5 19:18:49 Stenosis of right external ear canal due to and following inflammat ion 34130663995 25234 Active 2021 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 infection ; Note: Date Diagnosed : 05/17/2021 9:25 AM (H61.321) JUAN VEGAS MD [address] [facility],[place] [address], [place], [address] , [facility] - [facility] 5 19:19:04 Tympanosc lerosis of left middle ear [id number] 739221 Active 2021 Tympanosc lerosis, left ear; Note: Date Diagnosed : 05/17/2021 9:25 AM (H74.02) Not Available [facility] 4 03:02:19 Disturban ce of oral epitheliu m 01366800661 9107 Active 2021 Other disturban kathleen of oral epitheliu m, including tongue; Note: Date Diagnosed : 2 1:16 PM (K13.29) Not Available [facility] 4 03:02:23 Dizziness and giddiness 974136762 Active 2021 Dizziness and giddiness ; Note: Date Diagnosed : 2 1:16 PM (R42) Not Available [facility] 4 03:02:22 Dysphagia 20209278 Active 2024 JOSE R GAYLE PA-C [address] [facility],[place] [address], [place], [address] , [facility] 5 16:38:21 Mixed conductiv e and sensorine ural hearing loss, bilateral 265960944 Active 2024 RUT ROCHE [address] [place] [address],[place] [address], [place], [address] , [facility] - [facility] 5 17:00:27 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 Procedures Surgical History Date Name Laterality Status Provider Name and Address Organization Details Recorded Time 01/08/2025 Comp Audio with Tymps - 38019 & 10200 completed DIDIER MARVIN, EDILMA [address] [facility],[place] [address], [place], [address], [facility] 01/08/2025 08:48:21 11/18/2024 FOL_DP completed JOSE R GAYLE PA-C [address] [facility],[place] [address], [place], [address], [facility] 11/18/2024 17:11:13 Imaging Results None recorded. Procedure Notes None recorded. Medical Equipment None Reported. Allergies No known drug allergies Medications Name Sig Start Date Stop Date Status Note LastModified by Organization Details LastModified Time atorvasta tin 40 mg tablet TAKE 1 TABLET BY MOUTH DAILY active Not Available Not Available No t Available metformin 500 mg tablet 02/20 completed Medicati on ID: [id number] B rand Name: metformi n Send Method: E-Prescr ibed Sub s Allowed: subs OK Speci al Instruct ion: TAKE 2 TABLETS BY MOUTH TWICE DAILY Me dication GenericN isabel: metformi n Not Available Not Available Not Available venlafaxi ne ER 75 mg capsule,e xtended release 24 hr TAKE 1 CAPSULE BY MOUTH DAILY. DO NOT CRUSH OR CHEW. TAKE WITH 150 MG FOR TOTAL DAILY DOSE 225 active Not Available Not Available No t Available sertralin e 100 mg tablet 02/20 completed Medicati on ID: [id number] B rand Name: sertrali ne Send Method: E-Prescr ibed Sub s Allowed: subs OK Medic ationGen ericName : sertrali ne Not Available Not Available Not Available venlafaxi ne ER 150 mg capsule,e xtended release 24 hr TAKE 1 CAPSULE BY MOUTH DAILY. DO NOT CRUSH OR CHEW. TAKE WITH 75 MG FOR TOTAL DAILY DOSE 225 active Not Available Not Available No t Available SPS (with sorbitol) 15 gram-20 gram/60 mL oral suspensio n TAKE 60ML BY MOUTH FOR 1 DAY. SEPERATE FROM OTHER MEDS BY AT LEAST 3 HOURS 01/08 completed Not Available Not Available Not Available aspirin 81 mg tablet,de layed release active Not Available Not Available Not Available Vitamin D3 10 mcg (400 unit) tablet TAKE 2 TABLETS BY MOUTH DAILY active Not Available Not Available No t Available famotidin e 20 mg tablet TAKE 1 TABLET BY MOUTH TWICE DAILY FOR 30 DAYS NEEDED FOR HEARTBUR N active Not Available Not Available No t Available amitripty line 25 mg tablet TAKE 1 TABLET BY MOUTH AT BEDTIME active Not Available Not Available No t Available glimepiri de 4 mg tablet 02/20 completed Medicati on ID: [id number] B rand Name: glimepir hetal Send Method: E-Prescr ibed Sub s Allowed: subs OK Medic ationGen ericName : glimepir hetal Not Available Not Available Not Available docusate sodium 100 mg capsule TAKE ONE CAPSULE BY MOUTH TWICE DAILY NEEDED FOR CONSTIPA TION active Not Available Not Available No t Available ergocalci ferol (vitamin D2) 1,250 mcg (50,000 unit) capsule 02/17 completed Medicati on ID: [id number] B rand Name: ergocalc iferol (vitamin D2) Send Method: E-Prescr ibed Sub s Allowed: subs OK Medic ationGen ericName : ergocalc iferol (vitamin D2) Not Available Not Available Not Available metformin ER 500 mg tablet,ex tended release 24 hr TAKE 4 TABLETS BY MOUTH DAILY WITH THE EVENING MEAL active Not Available Not Available No t Available simethico ne 80 mg chewable tablet CHEW AND SWALLOW 1 TABLET BY MOUTH FOUR TIMES DAILY NEEDED FOR GAS active Not Available Not Available No t Available insulin lispro (U-100) 100 unit/mL subcutane ous pen INJECT 5 UNITS UNDER THE SKIN INFUSION THREE TIMES DAILY BEFORE MEALS FOR 30 DAYS 01/23 completed Not Available Not Available Not Available duloxetin e 30 mg capsule,d elayed release 01/23 completed Medicati on ID: [id number] B rand Name: duloxeti ne Send Method: E-Prescr ibed Sub s Allowed: subs OK Medic ationGen ericName : duloxeti ne Not Available Not Available Not Available BD Ultra-Fin e Mini Pen Needle 31 gauge x 3/16 USE TO INJECT INSULIN DAILY DIRECTED FOR TYPE 2 DIABETES active Not Available Not Available No t Available pregabali n 150 mg capsule 01/23 completed Medicati on ID: [id number] B rand Name: pregabal in Send Method: E-Prescr ibed Sub s Allowed: subs OK Medic ationGen ericName : pregabal in Not Available Not Available Not Available pregabali n 200 mg capsule TAKE 1 CAPSULE BY MOUTH TWICE DAILY FOR PAIN active Not Available Not Available No t Available FeroSul 325 mg (65 mg iron) tablet TAKE 1 TABLET BY MOUTH DAILY active Not Available Not Available No t Available Lantus Solostar U-100 Insulin 100 unit/mL (3 mL) subcutane ous pen ADMINIST ER 32 UNITS UNDER THE SKIN DAILY AT BEDTIME active Not Available Not Available No t Available Jardiance 10 mg tablet 02/20 completed Medicati on ID: [id number] B rand Name: Jardianc e Send Method: E-Prescr ibed Sub s Allowed: subs OK Medic ationGen ericName : Jardianc e Not Available Not Available Not Available Jardiance 25 mg tablet TAKE 1 TABLET BY MOUTH DAILY IN THE MORNING active Not Available Not Available No t Available Trulicity 0.75 mg/0.5 mL subcutane ous pen injector 02/20 completed Medicati on ID: [id number] B rand Name: Minaulicit y Send Method: E-Prescr ibed Sub s Allowed: subs OK Medic ationGen ericName : Trulicit y Not Available Not Available Not Available Ozempic 0.25 mg or 0.5 mg (2 mg/3 mL) subcutane ous pen injector INJECT 0.25MG SUBCUTAN EOUSLY DIRECTED ONCE A WEEK 01/08 completed Not Available Not Available Not Available Vitals Date Recorded Body height Body weight Systolic And Diastolic Provider Name and Address Organization Details Last Updated DateTime 01/08/2025 152.4 cm 08364.15 g 116/74 mm[Hg] Blossom Green [place] - [facility] 01/08/2025 08:29:55 Social History Question Answer Notes LastModified by Organizat ion Details LastModified Time Tobacco Smoking Status Never Smoker Holly horner [place] - [facility] 11/18/2024 15:57:57 What Type Of Legal Archivist Do You Use? None Information not available 11/18/2024 Do You Have Any Pets? No [email or web address] Information not available 11/18/2024 Are You Passively Exposed To Smoke? No [email or web address] Information not available 11/18/2024 Are There Any Smokers In Your House? No [email or web address] Information not available 11/18/2024 Sex: Unknown Functional Status Question Answer Note LastModified by Organizat ion Details LastModified Time Do you use any illicit or recreational drugs? No Information not available 11/18/2024 Do you or have you ever used any other forms of tobacco or nicotine? No [email or web address] Information not available 11/18/2024 What is your level of alcohol consumption? None [email or web address] Information not available 11/18/2024 What type of noise exposure are you exposed to? Other [email or web address] Information not available 11/18/2024 Mental Status None recorded. Family History Relationship Description Onset Age of this Age Resolved Age Notes LastModified by Organization Details LastModified Time Maternal Uncle Headache [email or web address] Not available 025 15:58:15 Maternal Uncle Blood coagulation disorder [email or web address] Not available 2024 15:58:15 Father Hearing loss 67 [email or web address] Not avai lable 11/18/2024 15:58:15 Father Diabetes mellitus 67 [email or web address] Not available 2024 15:58:15 Father Hereditary hearing loss 67 [email or web address] Not available 15:58:15 Paternal Grandmother Diabetes mellitus [email or web address] Not available 2024 15:58:15 Maternal Aunt Vertigo 82 [email or web address] Not av ailable 11/18/2024 15:58:15 Maternal Grandmother Asthma 86 [email or web address] Not available 10/31 15:58:15 Paternal Grandfather Diabetes mellitus [email or web address] Not available 2024 15:58:15 Medical History Condition Response Allergies/Hayfever N Heart Problems N Anxiety Y Tonsil Infections N Emphysema N Migraines N Thyroid Problems N Glaucoma N Depression Y COPD N Developmental Delay N Nasal or Sinus Problems N Anemia Y Immune System Disorder N Anesthesia Complications Y Heart Attack (MS) N Other Skin Condition Y Diabetes Y Rhinitis N Bleeding Disorder N Food Allergy N Arthritis Y Hearing Loss Y Hyperlipidemia N Cancer N Stroke N Dementia N Nasal polyps N Asthma N High Cholesterol Y Sleep Disorder Y GERD/Reflux Y Liver Disease N Headaches Y Fibromyalgia N Hypertension Y Speech Delay N Kidney Disease N Gynecological HistoryNo gynecological history recorded. Obstetrics History GPAL:G 0 P 0 0 0 0 Past Encounters Encounter ID Performer Location Encounter Start Date Encounter Closed Date Diagnosis/Indication Diagnosis SNOMED-CT Code Diagnosis ICD10 Code Diagnosis IMO Codes Diagnosis Note [id number] JUAN VEGAS MD [facility] [address] [address] 01/08/2025 07:58:57 01/08/2025 09:25:18 Mixed conductive and sensorineural hearing loss, bilateral [id number] H90.6 [id number] Audiologic al evaluation results:Ri ght ear:Modera tely-sever e to moderate mixed hearing loss with excellent word recognitio n.Left ear:Mild mixed hearing loss with excellent word recognitio n.Tympanom etry:Right Ear:Type BLeft Ear:Type B Bone conduction demo with bone conductor: SRT: 5dBWRS at 45dB (masked): 88% Stenosis o f right external ear canal due to and following inflammation [id number] 985481 H61.321 Health Concerns Section Related Observation LastModified by Organization Detai ls LastModified Time None Recorded Concern Status LastModified by Organization Details LastModified Time None Recorded Payers Encounter Date Sequence Insurance Name Policy Number Policy Varghese Covered Member ID Varghese Member ID Guarantor Name 01/08/2025 1 [employer] ([employer]) [id number] Oc Bucio [id number] Nicole Bucio Notes Date Note Type Note Provider Name and Address Organization Details Recorded Time 01/08/2025 text/html ROS as noted in the HPI 44-year-old female with a long-term history of chronic ear disease with resulting conductive hearing loss, right greater than left. Additionally, she has a history of medial canal stenosis with obliteration of the tympanic membrane on the right. Although a plan for Osia implantation was made at her last visit, the patient states she never received a call to schedule the demonstration with audiology. Last audiogram was 12/2022 at [place], which showed a maximal primarily conductive hearing loss on the right and mild to moderate mixed hearing loss on the left. Patient believes her hearing has slowly worsened over the last year bilaterally. She also states that her left ear feels blocked. She denies otalgia, otorrhea, recent ear infections, dizziness, or tinnitus. JUAN VEGAS MD [address] [place] [address], [place], [address], [facility] - [facility] 01/08/2025 09:36:00 OBGyn Episode No OBEpisode recorded.
--- OUTSIDE RECORDS SUMMARY | 2025-02-09 16:56 | XMS_ITS | Data Portability ---
Author Organization [place] - [facility], Allergy Address [address] [address] Care Team Providers Care Defensive Fire Control Systems Operator Name Role Phone DL TRIPLETT Primary Care Provider Assessment Encounter Date Assessment Date Assessment LastModified by Organization Details LastModified Time 11/18/2024 11/18/2024 44-year-old female with history of chronic ear disease presents for evaluation of the ears and throat. 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 Left TM is normal to inspection with tympanosclerosis and well-aerated middle ear space. Fiberoptic laryngoscopy today is benign without obvious GERD changes or mass. Vocal folds are mobile and move symmetrically. Patient will continue famotidine twice daily, and consider following up with gastroenterologi st. Will order a modified barium swallow to evaluate swallow mechanics and call with results. In regards to her hearing, discussed that she will need updated audiometric testing and re-consultation with Dr. Vegas for right-sided Osia implantation. Jenise Acosta PA-C assisted with evaluation and documentation. [email or web address] Not available 11/18/2024 17:16:40 01/08/2025 01/08/2025 Right external auditory canal continues [...] patient with the contact information for my surgical scrub technician. We will begin the scheduling process and see the patient back at the time of surgery. Patient will not require medical clearance from their primary care provider preoperatively. [email or web address] Not available 01/08/2025 08:38:56 Plan of Treatment [...] device in temporal bone (SURG) 2024 025 [email or web address] Not available 01/19/2025 10:14:09 Imaging [place], modified barium swallow study 2024 025 [email or web address] [facility] Centralized Scheduling([facility] [address] [place], [address], 12/12/2024 15:47:43 Medication Orders None recorded. 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 ; Note: Date Diagnosed : 05/17/2021 9:25 AM (H61.321) JUAN VEGAS MD [address] [place] [address], [place], [address] , [facility] 5 19:18:49 Stenosis of right external ear canal due to and following inflammat ion 35771384408 38522 Active 2021 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 infection ; Note: Date Diagnosed : 05/17/2021 9:25 AM (H61.321) JUAN VEGAS MD [address] [place] [address], [place], [address] , [facility] 5 19:19:04 Tympanosc lerosis of left middle ear 35003865712 628120 Active 2021 Tympanosc lerosis, left ear; Note: Date Diagnosed : 05/17/2021 9:25 AM (H74.02) Not Available [facility] 4 03:02:19 Disturban ce of oral epitheliu m 71240558844 9107 Active 2021 Other disturban kathleen of oral epitheliu m, including tongue; Note: Date Diagnosed : 2 1:16 PM (K13.29) Not Available [facility] 4 03:02:23 Dizziness and giddiness 992145899 Active 2021 Dizziness and giddiness ; Note: Date Diagnosed : 2 1:16 PM (R42) Not Available [facility] 4 03:02:22 Dysphagia 22941410 Active 2024 JOSE R GAYLE PA-C [address] [facility] [address], [place], [address] , [place] - [facility] 5 16:38:21 Mixed conductiv e and sensorine ural hearing loss, bilateral 925286597 Active 2024 RUT ROCHE [address] [facility],[place] [address], [place], [address] , [facility] - [facility] 5 17:00:27 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 Procedures Surgical History Date Name Laterality Status Provider Name and Address Organization Details Recorded Time 01/08/2025 Comp Audio with Tymps - 60806 & 78945 completed EDILMA VAZQUEZ [address] [facility],[place] [address], [place], [address], [facility] - [facility] 01/08/2025 08:48:21 11/18/2024 FOL_DP completed JOSE R GAYLE PA-C [address] [facility] [address], [place], [address], [facility] - [facility] 11/18/2024 17:11:13 Imaging Results None recorded. Procedure Notes None recorded. Medical Equipment None Reported. Allergies No known drug allergies Medications Name Sig Start Date Stop Date Status Note LastModified by Organization Details LastModified Time atorvasta tin 40 mg tablet TAKE 1 TABLET BY MOUTH DAILY active Not Available Not Available No t Available metformin 500 mg tablet 02/20 completed Medicati on ID: [id number] B dirk Name: fara prince Send Method: E-Prescr ibed Sub s Allowed: [...] mg tablet 02/20 completed Medicati on ID: [id number] B rand Name: sertrali ne Send Method: [...] mg tablet 02/20 completed Medicati on ID: [id number] B rand Name: glimepir hetal Send Method: E-Prescr ibed Sub s Allowed: subs OK [facility] glimepir hetal Not Available Not Available Not Available docusate sodium 100 mg capsule TAKE ONE CAPSULE BY MOUTH TWICE DAILY NEEDED FOR CONSTIPA TION active Not Available Not Available No t Available ergocalci ferol (vitamin D2) 1,250 mcg (50,000 unit) capsule 02/17 completed Medicati on ID: [id number] B rand Name: ergocalc iferol (vitamin D2) [...] elayed release 01/23 completed Medicati on ID: [id number] B rand Name: duloxeti ne Send Method: [...] mg capsule 01/23 completed Medicati on ID: [id number] B rand Name: pregabal in Send Method: [...] mg tablet 02/20 completed Medicati on ID: [id number] B rand Name: Jardianc e Send Method: E-Prescr ibed Sub s Allowed: subs OK Medic ationGen ericName : Jardianc e Not Available Not Available Not Available Jardiance 25 mg tablet TAKE 1 TABLET BY MOUTH DAILY IN THE MORNING active Not Available Not Available No t Available Trulicity 0.75 mg/0.5 mL subcutane ous pen injector 02/20 completed Medicati on ID: [id number] B rand Name: Trulicit y Send Method: E-Prescr ibed Sub s Allowed: subs OK Medic ationGen ericName : Trulicit y Not Available Not Available Not Available Ozempic 0.25 mg or 0.5 mg (2 mg/3 mL) subcutane ous pen injector INJECT 0.25MG SUBCUTAN EOUSLY DIRECTED ONCE A WEEK 01/08 completed Not Available Not Available Not Available Vitals Date Recorded Body weight Body mass index (BMI) Body height Provider Name and Address Organization Details Last Updated DateTime 11/18/2024 08990.15 g 32 kg/m2 152.4 cm Holly Stephens [place] [facility] 11/18/2024 16:01:15 Date Recorded Body height Body weight Systolic And Diastolic Provider Name and Address Organization Details Last Updated DateTime 01/08/2025 152.4 cm 73681.15 g 116/74 mm[Hg] Blossom Green [place] [facility] 01/08/2025 08:29:55 Social History Question Answer Notes LastModified by Organizat ion Details LastModified Time Tobacco Smoking Status Never Smoker Holly horner [place] [facility] 11/18/2024 15:57:57 What Type Of Loss Prevention Lead Do You Use? None [email or web address] Information not available 11/18/2024 Do You Have Any Pets? No [email or web address] Information not available 11/18/2024 Are You Passively Exposed To Smoke? No [email or web address] Information not available 11/18/2024 Are There Any Smokers In Your House? No Information not available 11/18/2024 Sex: Unknown Functional Status Question Answer Note LastModified by Organizat ion Details LastModified Time Do you use any illicit or recreational drugs? No [email or web address] Information not available 11/18/2024 Do you or have you ever used any other forms of tobacco or nicotine? No [email or web address] Information not available 11/18/2024 What is your level of alcohol consumption? None [email or web address] Information not available 11/18/2024 What type of noise exposure are you exposed to? Other [email or web address] Information not available 11/18/2024 Mental Status None recorded. Family History Relationship Description Onset Age of this Age Resolved Age Notes LastModified by Organization Details LastModified Time Maternal Uncle Headache Not available 025 15:58:15 Maternal Uncle Blood coagulation disorder [email or web address] Not available 2024 15:58:15 Father Hearing loss 67 [email or web address] Not avai lable 11/18/2024 15:58:15 Father Diabetes mellitus 67 [email or web address] Not available 2024 15:58:15 Father Hereditary hearing loss 67 [email or web address] Not available 15:58:15 Paternal Grandmother Diabetes mellitus [email or web address] Not available 2024 15:58:15 Maternal Aunt Vertigo 82 [email or web address] Not av ailable 11/18/2024 15:58:15 Maternal Grandmother Asthma 86 [email or web address] Not available 10/31 15:58:15 Paternal Grandfather Diabetes mellitus [email or web address] Not available 2024 15:58:15 Medical History Condition Response Allergies/Hayfever N Heart Problems N Anxiety Y Tonsil Infections N Emphysema N Migraines N Thyroid Problems N Developmental Delay N COPD N Depression Y Glaucoma N Nasal or Sinus Problems N Anemia Y Immune System Disorder N Anesthesia Complications Y Heart Attack (NM) N Other Skin Condition Y Diabetes Y Rhinitis N Bleeding Disorder N Food Allergy N Arthritis Y Hearing Loss Y Hyperlipidemia N Cancer N Stroke N Dementia N Nasal polyps N Asthma N Sleep Disorder Y GERD/Reflux Y High Cholesterol Y Liver Disease N Headaches Y Fibromyalgia N Hypertension Y Speech Delay N Kidney Disease N Gynecological HistoryNo gynecological history recorded. Obstetrics History GPAL:G 0 P 0 0 0 0 Past Encounters Encounter ID Performer Location Encounter Start Date Encounter Closed Date Diagnosis/Indication Diagnosis SNOMED-CT Code Diagnosis ICD10 Code Diagnosis IMO Codes Diagnosis Note [id number] JOSE R GAYLE PA-C [facility] [address] [address] 11/18/2024 15:54:48 11/18/2024 16:47:03 Dysphagia 51681247 R13.10 77412189 Mixed cond uctive and sensorineural hearing loss, bilateral 092341372 H90.6 0641445 Acquired s tenosis of right external ear canal 6808687372 823779 H61.568 [id number] JUAN VEGAS MD [facility] [address] [address] 01/08/2025 07:58:57 01/08/2025 09:25:18 Mixed conductive and sensorineural hearing loss, bilateral 529200689 H90.6 [id number] Audiologic al evaluation results:Ri ght ear:Modera tely-sever e to moderate mixed hearing loss with excellent word recognitio n.Left ear:Mild mixed hearing loss with excellent word recognitio n.Tympanom etry:Right Ear:Type BLeft Ear:Type B Bone conduction demo with bone conductor: SRT: 5dBWRS at 45dB (masked): 88% Stenosis o f right external ear canal due to and following inflammation 5945344657 813883 H61.321 Health Concerns Section Related Observation LastModified by Organization Detai ls LastModified Time None Recorded Concern Status LastModified by Organization Details LastModified Time None Recorded Advance Directives Directive None Recorded Payers Insurance Date Sequence Insurance Name Policy Number Policy Varghese Covered Member ID Varghese Member ID Guarantor Name 11/18/2024 1 [facility] Nicole Rupinder [id number] Nicole Rupinder 01/06/2025 1 [facility] [id number] Nicole Rupinder [id number] Nicole Rupinder 01/06/2025 1 [employer] Nicole Rupinder [id number] Nicole Rupinder 01/12/2025 1 [employer] [id number] Oc Rupinder [id number] Nicole Rupinder 01/08/2025 1 [employer] [id number] Vahid Rupinder [id number] Nicole Rupinder Notes Date Note Type Note Provider Name and Address Organization Details Recorded Time 11/18/2024 text/html ROS as noted in the HPI 44-year-old female with a long-term history of chronic ear disease presents for cerumen removal and to re-discuss right-sided Osia implantation. Patient was last seen by Dr. Vegas on February 20, 2023, at which time right-sided Osia implant was recommended due to her significant right-sided conductive hearing loss. Per Dr. Vegas's last note she has a long-term history of chronic ear disease [...] with audiology. Last audiogram was 12/2022 at [place], which showed a maximal primarily conductive hearing loss on the right and mild to moderate mixed hearing loss on the left. Patient believes her hearing has slowly worsened over the last year bilaterally. She also states that her left ear feels blocked. She denies otalgia, otorrhea, recent ear infections, dizziness, or tinnitus. Additionally, the patient reports dysphagia to solid foods and occasionally liquids, which has been present for the last few years. She states that she feels like food gets stuck penitent[facility] down her throat, causing her to cough. She has only coughed food back up on one occasion. She has a history of GERD, which she manages with famotidine 20 mg BID. 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 She denies a history of head and neck surgeries, history of radiation, odynophagia, hemoptysis, unintentional weight loss, or halitosis. JUAN VEGAS MD [address] [place] [address],[address], [address], [facility] 11/20/2024 10:38:21 01/08/2025 text/html ROS as noted in the [...] with audiology. Last audiogram was 12/2022 at [place], which showed a maximal primarily conductive hearing loss on the right and mild to moderate mixed hearing loss on the left. Patient believes her hearing has slowly worsened over the last year bilaterally. She also states that her left ear feels blocked. She denies otalgia, otorrhea, recent ear infections, dizziness, or tinnitus. JUAN VEGAS MD [address] [place] [address],[address], [address], [facility] 01/08/2025 09:36:00 OBGyn Episode No OBEpisode recorded.
--- OUTSIDE RECORDS SUMMARY | 2025-02-09 16:56 | XMS_ITS | Continuity of Care Document ---
Author Organization [facility] - [facility], [facility] Address [address] [place] [address] Care Team Providers Care Pre School Teacher Name Role Phone DL TRIPLETT Primary Care Provider Assessment Encounter Date Assessment Date Assessment LastModified by Organization Details LastModified Time 11/18/2024 11/18/2024 44-year-old female with history of chronic ear disease presents for evaluation of the ears and throat. 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 Left TM is normal to inspection with tympanosclerosi s and well-aerated middle ear space. Fiberoptic laryngoscopy today is benign without obvious GERD changes or mass. Vocal folds are mobile and move symmetrically. Patient will continue famotidine twice daily, and consider following up with gastroenterolog ist. Will order a modified barium swallow to evaluate swallow mechanics and call with results. In regards to her hearing, discussed that she will need updated audiometric testing and re-consultation with Dr. Vegas for right-sided Osia implantation. Jenise Acosta PA-C assisted with evaluation and documentation. [email or web address] Not available 11/18/2024 17:16:40 Plan of Treatment Reminders Order Date Submit [...] Referral None recorded. Procedures None recorded. Surgeries None recorded. Imaging [place], modified barium swallow study 2024 025 [facility] Centralized Scheduling([facility] [address] [facility], [place], [address], 12/12/2024 15:47:43 Medication Orders None recorded. 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 infection ; Note: Date Diagnosed : 05/17/2021 9:25 AM (H61.321) JUAN VEGAS MD [address] [place] [address], [place], [address] , [facility] 19:18:49 Stenosis of right external ear canal due to and following inflammat ion 94966200066 25565 Active 2021 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 infection ; Note: Date Diagnosed : 05/17/2021 9:25 AM (H61.321) JUAN VEGAS MD [address] [place] [address], [place], [address] , [facility] 19:19:04 Tympanosc lerosis of left middle ear 38127352467 547365 Active 2021 Tympanosc lerosis, left ear; Note: Date Diagnosed : 05/17/2021 9:25 AM (H74.02) Not Available Counts include 234 beds at the [facility] 4 03:02:19 Disturban ce of oral epitheliu m 72596145837 9107 Active 2021 Other disturban kathleen of oral epitheliu m, including tongue; Note: Date Diagnosed : 2 1:16 PM (K13.29) Not Available Counts include 234 beds at the [facility] 4 03:02:23 Dizziness and giddiness 937205322 Active 2021 Dizziness and giddiness ; Note: Date Diagnosed : 2 1:16 PM (R42) Not Available Counts include 234 beds at the [facility] 4 03:02:22 Dysphagia 32479934 Active 2024 JOSE R GAYLE PA-C [address], [place], [address] , [facility] - [facility] 5 16:38:21 Mixed conductiv e and sensorine ural hearing loss, bilateral 106720809 Active 2024 RUT ROCHE [address],[place] [address], [facility] [place], [address] , [place] - [facility] 5 17:00:27 Acquired stenosis of right external ear canal 69148440316 31988 Active 2024 RUT ROCHE [address], [facility] [place], [address] , [place] - [facility] 5 17:00:45 Problem Notes None recorded. Procedures Surgical History Date Name Laterality Status Provider Name and Address Organization Details Recorded Time 01/08/2025 Comp Audio with Tymps - 84253 & 42896 completed EDILMA VAZQUEZ [address], [place], [address], [place] - [facility] 01/08/2025 08:48:21 11/18/2024 FOL_DP completed JOSE R GAYLE PA-C [address], [place], [address], [place] - [facility] 11/18/2024 17:11:13 Imaging Results None recorded. Procedure Notes None recorded. Medical Equipment None Reported. Allergies No known drug allergies Medications Name Sig Start Date Stop Date Status Note LastModified by Organization Details LastModified Time atorvasta tin 40 mg tablet TAKE 1 TABLET BY MOUTH DAILY active Not Available Not Available No t Available metformin 500 mg tablet 02/20 completed Medicati on ID: [id number] B rand Name: metformi n Send Method: [...] mg tablet 02/20 completed Medicati on ID: [id number] B rand Name: sertrali ne Send Method: [...] mg tablet 02/20 completed Medicati on ID: [id number] B rand Name: glimepir hetal Send Method: [...] unit) capsule 02/17 completed Medicati on ID: [id number] B rand Name: ergocalc iferol (vitamin D2) Send Method: E-Prescr ibed Sub s Allowed: subs [facility]ocalc iferol (vitamin D2) Not [...] elayed release 01/23 completed Medicati on ID: [id number] B rand Name: duloxeti ne Send Method: E-Prescr ibed Sub s Allowed: subs OK Medic [facility] ericName : duloxeti ne Not Available Not Available Not Available BD Ultra-Fin e Mini Pen Needle 31 gauge x 3/16 USE TO INJECT INSULIN DAILY DIRECTED FOR TYPE 2 DIABETES active Not Available Not Available No t Available pregabali n 150 mg capsule 01/23 completed Medicati on ID: [id number] B rand Name: pregabal in Send Method: E-Prescr ibed Sub s Allowed: subs OK Medic [facility] ericName : pregabal in Not Available Not [...] mg tablet 02/20 completed Medicati on ID: [id number] B rand Name: Sergio arvizu Send Method: E-Prescr ibed Sub s Allowed: subs OK Medic [facility] ericName : Jardianc e Not Available Not Available Not Available Jardiance 25 mg tablet TAKE 1 TABLET BY MOUTH DAILY IN THE MORNING active Not Available Not Available No t Available Trulicity 0.75 mg/0.5 mL subcutane ous pen injector 02/20 completed Medicati on ID: [id number] B rand Name: Андрей y Send Method: E-Prescr ibed Sub s [...] Address Organization Details Last Updated DateTime 11/18/2024 13804.15 g 32 kg/m2 152.4 cm Holly Stephens [place] - [facility] 11/18/2024 16:01:15 Social History Question Answer Notes LastModified by Organizat ion Details LastModified Time Tobacco Smoking Status Never Smoker Holly horner [place] - [facility] 11/18/2024 15:57:57 What Type Of Fighting Vehicle Infantryman Do You Use? None Information not available 11/18/2024 Do You Have Any Pets? No Information not available 11/18/2024 Are You Passively Exposed To Smoke? No [email or web address] Information not available 11/18/2024 Are There Any Smokers In Your House? No Information not available 11/18/2024 Sex: Unknown Functional Status Question Answer Note LastModified by Organizat ion Details LastModified Time Do you use any illicit or recreational drugs? No [email or web address] Information not available 11/18/2024 Do you or have you ever used any other forms of tobacco or nicotine? No [email or web address] Information not available 11/18/2024 What is your level of alcohol consumption? None [email or web address] Information not available 11/18/2024 What type of noise exposure are you exposed to? Other [email or web address] Information not available 11/18/2024 Mental Status None recorded. Family History Relationship Description Onset Age of this Age Resolved Age Notes LastModified by Organization Details LastModified Time Maternal Uncle Headache Not available 025 15:58:15 Maternal Uncle Blood coagulation disorder [email or web address] Not available 2024 15:58:15 Father Hearing loss 67 Not avai lable 11/18/2024 15:58:15 Father Diabetes mellitus 67 [email or web address] Not available 2024 15:58:15 Father Hereditary hearing loss 67 [email or web address] Not available 15:58:15 Paternal Grandmother Diabetes mellitus [email or web address] Not available 2024 15:58:15 Maternal Aunt Vertigo 82 [email or web address] Not av ailable 11/18/2024 15:58:15 Maternal Grandmother Asthma 86 [email or web address] Not available 10/31 15:58:15 Paternal Grandfather Diabetes mellitus [id number] Not available 2024 15:58:15 Medical History Condition Response Allergies/Hayfever N Heart Problems N Anxiety Y Tonsil Infections N Emphysema N Migraines N Thyroid Problems N Glaucoma N Depression Y COPD N Developmental Delay N Nasal or Sinus Problems N Anemia Y Immune System Disorder N Anesthesia Complications Y Heart Attack (MD) N Other Skin Condition Y Diabetes Y [...] ICD10 Code Diagnosis IMO Codes Diagnosis Note [id number] JOSE R GAYLE PA-C [facility] of [address] [address] 11/18/2024 15:54:48 11/18/2024 16:47:03 Dysphagia 80064338 R13.10 [id number] Mixed cond uctive and sensorineural hearing loss, bilateral 220076546 H90.6 1967593 Acquired s tenosis of right external ear canal 0241980063 356606 H61.483 5853690 Health Concerns Section Related Observation LastModified by Organization Detai ls LastModified Time None Recorded Concern Status LastModified by Organization Details LastModified Time None Recorded Payers Encounter Date Sequence Insurance Name Policy Number Policy Varghese Covered Member ID Varghese Member ID Guarantor Name 11/18/2024 1 [facility] [id number] [facility] [id number] [facility] Notes Date Note Type Note Provider Name [...] with audiology. Last audiogram was 12/2022 at [place], which showed a maximal primarily conductive hearing [...] that she feels like food gets stuck jail down her throat, causing her to cough. She has only coughed food back up on one occasion. She has a history of GERD, which she manages with famotidine 20 mg BID. 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 She denies a history of head and neck surgeries, history of radiation, odynophagia, hemoptysis, unintentional weight loss, or halitosis. JUAN VEGAS MD [address] [place] [address], [place], [address], [place] - [facility] 11/20/2024 10:38:21 OBGyn Episode No OBEpisode recorded.
== END 2025-02-09 15:03 | disposition home or self-care (01) ==
LOC: HO.PMC 14:38
PROVIDERS: PCP Internal Medicine Geriatric Medicine; Visit Provider Nurse Practitioner Family
DX: E11.40 Type 2 diabetes mellitus with diabetic neuropathy, unspecified (principal); M54.50 Low back pain, unspecified; G89.4 Chronic pain syndrome
CPT/HCPCS: 99214